=== PATIENT | male | born 1995 | race African-American/Black ===

== ENCOUNTER 2021-02-25 20:29 | Emergency (ER) | payer BC, SELFPAY ==
[2021-02-25] MEDS ORDERED: Acetaminophen 500 MG TAB ONE (20:51)
== END 2021-02-25 22:15 | disposition home or self-care (01) ==
LOC: NAV ERS 20:29
DX: S05.11XA Contusion of eyeball and orbital tissues, right eye, initial encounter (principal); W22.8XXA Striking against or struck by other objects, initial encounter
CPT/HCPCS: 70486